=== PATIENT | female | born 1960 | race Caucasian/White ===

== ENCOUNTER 2019-04-12 11:09 | Observation (INO) ==
[2019-04-12] MEDS ORDERED: Isovue-370 500 ML BOTTLE IVP ONE ×2 (11:43→11:58)
[2019-04-12 12:51] LABS: eGFR For African Americans > 60 (> 60); eGFR For Non-African Americans > 60 (> 60)
[2019-04-12 13:16] LABS: Candida DNA Not Detected (Not Detect); Gardnerella DNA DETECTED (Not Detect); Trichomonas DNA Not Detected (Not Detect)
[2019-04-12 13:29] LABS: Basophils # 0.1 K/mcL (0.0-0.2); Basophils % 0.7 %; Eosinophils # 0.1 K/mcL (0.0-0.6); Hematocrit 42.1 % (35.3-44.9); Hemoglobin 14.4 g/dL (11.5-15.4); Immature Granulocytes % 0.5 % (0-4); Lymphocytes # 2.1 K/mcL (0.6-4.6); Lymphocytes % 27.9 %; Mean Corpuscular HGB Conc 34.2 g/dL (31.6-35.5); Mean Corpuscular Hemoglobin 30.4 pg (28.0-33.3); Monocytes # 0.4 K/mcL (0.0-1.3); Monocytes % 4.9 %; Platelet Count 305 K/mcL (140-400); Red Blood Count 4.73 M/mcL (3.82-4.97); White Blood Count 7.7 K/mcL (4.3-11.1)
[2019-04-12] MEDS ORDERED: Isovue-370 500 ML BOTTLE RC ONE (13:33)
[2019-04-12 13:40] LABS: Alanine Aminotransferase 25 Units/L (7-52); Albumin 3.8 g/dL (3.5-5.7); Albumin/Globulin Ratio 1.5 (1.1-2.2); Alkaline Phosphatase 78 Units/L (34-104); Aspartate Amino Transferase 21 Units/L (13-39); BUN/Creatinine Ratio 31 (6-26); Bilirubin,Total 0.2 mg/dL (0.3-1.0); Blood Urea Nitrogen 25 mg/dL (6-20); Calcium 9.3 mg/dL (8.6-10.3); Carbon Dioxide 28 mEq/L (23-29); Chloride 104 mEq/L (98-107); Globulin 2.6 g/dL (2.4-3.5); Glucose 105 mg/dL (70-105); Osmolality,Calculated 299 (280-300); Potassium 3.2 mEq/L (3.5-5.1); Sodium 142 mEq/L (136-145); Total Protein 6.4 g/dL (6.4-8.9)
[2019-04-12] MEDS ORDERED: Ondansetron ODT 4 MG TAB.RAPDIS SL PRN (15:44)
[2019-04-12] MEDS ORDERED: Naloxone 0.4 MG/ML INJ IVP PRN (15:44)
[2019-04-12 16:45] LABS: Bilirubin,Urine Negative (Negative); Blood,Urine Negative (Negative); Clarity,Urine Clear (Clear); Color,Urine Yellow (Yellow); Glucose,Urine (UA) Normal (Normal); Ketones,Urine Negative (Negative); Leukocyte Esterase,Urine Moderate (Negative); Nitrite,Urine Negative (Negative); PH,Urine 5.5 pH Units (5.0-8.0); Protein,Urine Negative (Neg-Trace); Specific Gravity,Urine > 1.030 (1.010-1.025); Urobilinogen,Urine Normal (Normal)
[2019-04-12 16:48] LABS: Bacteria,Urine None Seen per hpf (None-Few); Hyaline Casts,Urine Few per lpf (None-Few); Squamous Epithelial Cell,Urine Moderate per lpf (None-Few); WBC,Urine TNTC per hpf (0-3)
[2019-04-12] MEDS: 0.9 % Sodium Chloride 1,000 ML IVC SCH (17:54)
[2019-04-12] MEDS: MetroNIDAZOLE 500 MG/100 ML 500 MG/100 ML BAG IVPB SCH (17:55)
[2019-04-12] MEDS: levoFLOXacin 750 MG/150 ML 750 MG/150 ML BAG IVPB SCH (19:06)
[2019-04-12] MEDS ORDERED: traZODone 50 MG TABLET PO SCH (21:00)
[2019-04-12] MEDS ORDERED: rOPINIRole 1 MG TABLET PO SCH (21:00)
[2019-04-13] MEDS: MetroNIDAZOLE 500 MG/100 ML 500 MG/100 ML BAG IVPB SCH ×3 (00:09→15:24)
[2019-04-13] MEDS: 0.9 % Sodium Chloride 1,000 ML IVC SCH (07:45)
[2019-04-13] MEDS ORDERED: Carbidopa/Levodopa 25/250 TABLET PO SCH (09:00)
[2019-04-13] MEDS: levoFLOXacin 750 MG/150 ML 750 MG/150 ML BAG IVPB SCH (09:19)
[2019-04-13] MEDS ORDERED: Lidocaine -MPF 2% 2 ML VIAL ONE ×2 (17:02→17:03)
[2019-04-13] MEDS ORDERED: *HR* Propofol 200 MG/20 ML VIAL IVP ONE ×3 (17:02→17:48)
[2019-04-13] MEDS ORDERED: *HR* Midazolam HCl 2 MG/2 ML VIAL ONE (17:31)
[2019-04-13] MEDS ORDERED: Naloxone 0.4 MG/ML INJ IVP PRN (18:32)
[2019-04-13] MEDS ORDERED: Ondansetron ODT 4 MG TAB.RAPDIS SL PRN (18:32)
[2019-04-13 18:38] VITALS: BP 116/71
[2019-04-13] MEDS ORDERED: rOPINIRole 1 MG TABLET PO SCH (21:00)
[2019-04-13] MEDS ORDERED: traZODone 50 MG TABLET PO SCH (21:00)
[2019-04-14] MEDS ORDERED: MetroNIDAZOLE 500 MG/100 ML 500 MG/100 ML BAG IVPB SCH
[2019-04-14] MEDS ORDERED: Carbidopa/Levodopa 25/250 TABLET PO SCH (09:00)
[2019-04-14] MEDS ORDERED: levoFLOXacin 750 MG/150 ML 750 MG/150 ML BAG IVPB SCH (09:00)
== END 2019-04-13 19:12 | disposition home or self-care (01) ==
LOC: EMEROOARM 11:09 → INTOOBSV 15:40 → 3ANU 15:40
PROVIDERS: ADMIT Surgery; ATTEND Surgery

== ENCOUNTER 2019-04-18 13:32 | Inpatient (IN) ==
[2019-04-18] MEDS ORDERED: CeFAZolin Syr 2,000MG/20 ML 2,000 MG/20 ML SYRINGE IVPB ONE (14:31)
[2019-04-18] MEDS ORDERED: Albuterol 2.5 MG/3 ML NEBULIZER IH PRN (14:31)
[2019-04-18] MEDS: Ringers Solution, Lactated 1,000 ML IVC SCH ×2 (14:35→22:14)
[2019-04-18] MEDS ORDERED: *HR* OxyCODONE Immed Rel 5 MG TABLET PO PRN (15:04)
[2019-04-18] MEDS ORDERED: *HR* HYDROmorphone (PF) 1 MG/ML SYRINGE IVP PRN (15:04)
[2019-04-18] MEDS ORDERED: *HR* Promethazine 25 MG/ML VIAL IVP PRN (15:04)
[2019-04-18] MEDS ORDERED: Ondansetron 4 MG/2 ML VIAL IVP ONE (15:04)
[2019-04-18] MEDS ORDERED: *HR* Propofol 200 MG/20 ML VIAL IVP ONE (15:49)
[2019-04-18] MEDS ORDERED: *HR* FentaNYL (PF) 100 MCG/2 ML VIAL ONE ×2 (15:49→18:09)
[2019-04-18] MEDS ORDERED: Lidocaine -MPF 4% 5 ML AMPUL ONE (15:49)
[2019-04-18] MEDS ORDERED: Ondansetron 4 MG/2 ML VIAL ONE ×2 (15:49→18:03)
[2019-04-18] MEDS ORDERED: Lidocaine -MPF 2% 2 ML VIAL ONE ×2 (15:49→18:03)
[2019-04-18] MEDS ORDERED: *HR* Rocuronium Bromide 50 MG/5 ML VIAL ONE ×2 (15:49→20:22)
[2019-04-18] MEDS ORDERED: CefOXitin 2,000 MG VIAL ONE (16:56)
[2019-04-18] MEDS ORDERED: *HR* PHENYLEPHRINE 1,000 MCG/10 ML SYRINGE IVP ONE ×2 (17:45→20:47)
[2019-04-18] MEDS ORDERED: MetroNIDAZOLE 500 MG/100 ML 500 MG/100 ML BAG IVPB ONE ×2 (17:45→18:30)
[2019-04-18] MEDS ORDERED: Dexamethasone 4 MG/ML VIAL ONE (18:03)
[2019-04-18] MEDS ORDERED: EPHEDrine 50 MG/ML VIAL ONE (18:04)
[2019-04-18] MEDS ORDERED: *HR* Labetalol 20 MG/4 ML SYRINGE IVP ONE (18:51)
[2019-04-18] MEDS ORDERED: Albumin Human 5% 25.0 GM/500 ML VIAL ONE (19:42)
[2019-04-18] MEDS ORDERED: *HR* HYDROMORPHONE 2 MG/ML VIAL ONE (21:05)
[2019-04-18] MEDS ORDERED: Ipratropium/Albuterol Neb 3 ML ONE (21:12)
[2019-04-18] MEDS ORDERED: Ipratropium/Albuterol Neb 3 ML IH ONE (21:12)
[2019-04-18] MEDS ORDERED: *HR* Midazolam HCl 5 MG/5 ML VIAL IVP ONE (21:25)
[2019-04-18] MEDS ORDERED: *HR* Midazolam HCl 2 MG/2 ML VIAL ONE (21:26)
[2019-04-18] MEDS ORDERED: Naloxone 0.4 MG/ML INJ IVP PRN (23:01)
[2019-04-18] MEDS ORDERED: Melatonin 3 MG TABLET PO PRN (23:01)
[2019-04-19] MEDS: Ringers Solution, Lactated 1,000 ML IVC SCH ×2 (00:48→08:22)
[2019-04-19 06:49] LABS: Basophils % 0.1 %; Hematocrit 32.1 % (35.3-44.9); Immature Granulocytes % 0.5 % (0-4); Lymphocytes # 0.6 K/mcL (0.6-4.6); Lymphocytes % 4.2 %; Mean Corpuscular HGB Conc 32.4 g/dL (31.6-35.5); Mean Corpuscular Hemoglobin 30.4 pg (28.0-33.3); Mean Corpuscular Volume 93.9 fL (83.0-100.0); Mean Platelet Volume 8.9 fL (9.4-12.4); Monocytes # 0.7 K/mcL (0.0-1.3); Monocytes % 4.9 %; Platelet Count 230 K/mcL (140-400); Red Blood Count 3.42 M/mcL (3.82-4.97); Red Cell Distribution Width 13.3 % (11.5-14.5); Segmented Neutrophils % 90.3 %
[2019-04-19 06:50] LABS: BUN/Creatinine Ratio 19 (6-26); Blood Urea Nitrogen 17 mg/dL (6-20); Calcium 8.4 mg/dL (8.6-10.3); Carbon Dioxide 23 mEq/L (23-29); Chloride 105 mEq/L (98-107); Glucose 199 mg/dL (70-105); Magnesium 1.4 mg/dL (1.6-2.6); Osmolality,Calculated 295 (280-300); Phosphorous 3.9 mg/dL (2.7-4.5); Potassium 3.9 mEq/L (3.5-5.1); Sodium 139 mEq/L (136-145); eGFR For African Americans > 60 (> 60); eGFR For Non-African Americans > 60 (> 60)
[2019-04-19 07:06] LABS: White Blood Count 13.3 K/mcL (4.3-11.1)
[2019-04-19 07:07] LABS: Hemoglobin 10.4 g/dL (11.5-15.4)
[2019-04-19] MEDS: Carbidopa/Levodopa 25/250 TABLET PO SCH (08:20)
[2019-04-19] MEDS: 0.9 % Sodium Chloride 1,000 ML IVC SCH ×2 (09:49→11:01)
[2019-04-19] MEDS ORDERED: Ketorolac 30 MG/ML VIAL IVP ONE (12:02)
[2019-04-19] MEDS: D5% in 0.45% NACL w KCl 20 MEQ/1,000 ML MLS IVC SCH (13:45)
[2019-04-19] MEDS: Acetaminophen IV 1,000 MG/100 ML INFUS..BTL IVPB SCH ×3 (13:46→23:23)
[2019-04-19] MEDS: Ketorolac 15 MG/ML VIAL IVP SCH ×2 (17:59→23:24)
[2019-04-19] MEDS: traZODone 50 MG TABLET PO SCH (20:03)
[2019-04-19] MEDS: rOPINIRole 1 MG TABLET PO SCH (20:04)
[2019-04-20] MEDS: Acetaminophen IV 1,000 MG/100 ML INFUS..BTL IVPB SCH ×3 (05:40→18:07)
[2019-04-20] MEDS: D5% in 0.45% NACL w KCl 20 MEQ/1,000 ML MLS IVC SCH ×2 (05:41→09:57)
[2019-04-20] MEDS: Ketorolac 15 MG/ML VIAL IVP SCH ×3 (05:41→18:04)
[2019-04-20 06:20] LABS: Basophils % 0.1 %; Eosinophils % 0.4 %; Hematocrit 25.5 % (35.3-44.9); Immature Granulocytes % 0.3 % (0-4); Lymphocytes # 1.8 K/mcL (0.6-4.6); Lymphocytes % 23.8 %; Mean Corpuscular HGB Conc 33.3 g/dL (31.6-35.5); Mean Corpuscular Hemoglobin 30.5 pg (28.0-33.3); Mean Corpuscular Volume 91.4 fL (83.0-100.0); Mean Platelet Volume 9.1 fL (9.4-12.4); Monocytes # 0.5 K/mcL (0.0-1.3); Monocytes % 5.9 %; Neutrophils # 5.3 K/mcL (1.6-8.9); Platelet Count 180 K/mcL (140-400); Red Blood Count 2.79 M/mcL (3.82-4.97); Red Cell Distribution Width 13.6 % (11.5-14.5); Segmented Neutrophils % 69.5 %; White Blood Count 7.6 K/mcL (4.3-11.1)
[2019-04-20 06:22] LABS: Hemoglobin 8.5 g/dL (11.5-15.4)
[2019-04-20 06:48] LABS: BUN/Creatinine Ratio 16 (6-26); Blood Urea Nitrogen 13 mg/dL (6-20); Calcium 8.1 mg/dL (8.6-10.3); Carbon Dioxide 23 mEq/L (23-29); Chloride 106 mEq/L (98-107); Glucose 115 mg/dL (70-105); Osmolality,Calculated 285 (280-300); Potassium 3.4 mEq/L (3.5-5.1); Sodium 137 mEq/L (136-145); eGFR For African Americans > 60 (> 60); eGFR For Non-African Americans > 60 (> 60)
[2019-04-20] MEDS: Carbidopa/Levodopa 25/250 TABLET PO SCH (09:51)
[2019-04-20] MEDS: traZODone 50 MG TABLET PO SCH (22:05)
[2019-04-20] MEDS: rOPINIRole 1 MG TABLET PO SCH (22:06)
[2019-04-21] MEDS: Acetaminophen IV 1,000 MG/100 ML INFUS..BTL IVPB SCH ×3 (00:12→12:31)
[2019-04-21] MEDS: Ketorolac 15 MG/ML VIAL IVP SCH ×3 (00:12→12:32)
[2019-04-21] MEDS: D5% in 0.45% NACL w KCl 20 MEQ/1,000 ML MLS IVC SCH (04:21)
[2019-04-21] MEDS: Carbidopa/Levodopa 25/250 TABLET PO SCH (09:01)
[2019-04-21] MEDS: *HR* OxyCODONE/APAP 5/325 TABLET PO PRN ×2 (15:37→23:47)
[2019-04-21] MEDS: rOPINIRole 1 MG TABLET PO SCH (22:43)
[2019-04-21] MEDS: Ibuprofen 600 MG TABLET PO SCH (22:43)
[2019-04-21] MEDS: traZODone 50 MG TABLET PO SCH (22:43)
[2019-04-22] MEDS: Ibuprofen 600 MG TABLET PO SCH ×2 (09:18→14:56)
[2019-04-22] MEDS: *HR* OxyCODONE/APAP 5/325 TABLET PO PRN (09:19)
[2019-04-22] MEDS: Carbidopa/Levodopa 25/250 TABLET PO SCH (09:19)
[2019-04-22 16:04] VITALS: BP 106/67
== END 2019-04-22 17:31 | disposition home or self-care (01) | DRG 330 ==
LOC: SAMDAY 13:32 → 3ANU 22:59
PROVIDERS: ADMIT Surgery; ATTEND Surgery